=== PATIENT | female | born 1955 | race Caucasian/White ===

== ENCOUNTER 2021-07-22 13:02 | Emergency (ER) | payer MEDICAID ==
[~2021-07-22] VITALS: Ht 167.6 cm; Wt 64.5 kg
[2021-07-22 13:48] LABS: BASOPHILS # (AUTO) 0.1 X10'3 (0-0.2); EOSINOPHILS # (AUTO) 0.1 X10'3 (0-0.9); EOSINOPHILS % (AUTO) 1.9 % (0-6); LYMPHOCYTES # (AUTO) 1.1 X10'3 (1.1-4.8); PLATELET COUNT 312 X10'3 (140-440)
[2021-07-22 13:50] LABS: BASOPHILS % (AUTO) 0.8 % (0-1); HEMATOCRIT 44.1 % (35.0-45.0); LYMPHOCYTES % (AUTO) 18.3 % (21-51); MEAN CORPUSCULAR HEMOGLOBIN 31.4 PG (27.0-31.0); MEAN CORPUSCULAR VOLUME 92.4 FL (78-98); MEAN PLATELET VOLUME 7.1 FL (7.4-10.4); MONOCYTES # (AUTO) 0.5 X10'3 (0-0.9); MONOCYTES % (AUTO) 8.6 % (2-12); NEUTROPHILS # (AUTO) 4.2 X10'3 (1.8-7.7); NEUTROPHILS % (AUTO) 70.4 % (42-75); RED BLOOD COUNT 4.77 X10'6 (4.20-5.60)
[2021-07-22] MEDS ORDERED: ipratropium/albuterol 3ml nebule NEB ONE (13:50)
[2021-07-22 13:56] LABS: ALANINE AMINOTRANSFERASE 21 U/L (12-78); ALBUMIN 3.4 G/DL (3.4-5.0); ALBUMIN/GLOBULIN RATIO 0.8 (1.1-1.5); ALKALINE PHOSPHATASE 80 IU/L (46-116); ANION GAP 14 (8-16); ASPARTATE AMINO TRANSFERASE 32 U/L (10-37); BILIRUBIN,TOTAL 0.8 MG/DL (0.1-1.0); BLOOD UREA NITROGEN 7 MG/DL (7-18); CALCIUM 9.4 MG/DL (8.5-10.1); CHLORIDE 94 MMOL/L (99-107); CREATININE 0.88 MG/DL (0.40-0.90); GLUCOSE 107 MG/DL (70-104); POTASSIUM 4.1 MMOL/L (3.5-5.1); SODIUM 131 MMOL/L (135-145); TOTAL CARBON DIOXIDE 23.3 MMOL/L (24-32); TOTAL PROTEIN 7.8 G/DL (6.4-8.2); eGFR 64 ML/MIN
[2021-07-22] MEDS ORDERED: ALBU8.5H17 IH (15:30)
[2021-07-22] MEDS ORDERED: PRED20TA PO (15:30)
[2021-07-22 16:27] VITALS: BP 130/79
== END 2021-07-22 16:28 | disposition home or self-care (01) ==
LOC: ER 13:02
DX: J44.1 Chronic obstructive pulmonary disease with (acute) exacerbation (principal); Z20.822 Contact with and (suspected) exposure to COVID-19; R06.02 Shortness of breath; M79.89 Other specified soft tissue disorders; Z79.899 Other long term (current) drug therapy
CPT/HCPCS: 36415; 71045; 80053; 83880; 84484; 85025; 87502; 87503; 87635; 93005; 94640; 99285; C9803; 94760

== ENCOUNTER 2022-01-07 14:56 | Inpatient (IN) | payer MEDICARE, MEDICAID ==
[~2022-01-07] VITALS: Ht 167.6 cm; Wt 59.0 kg
[~2022-01-07 14:56] MED LIST: ALBU8.5H17 IH
[2022-01-07] MEDS ORDERED: OMEP20CA16 PO (15:45)
[2022-01-07] MEDS ORDERED: BUDE10.22 IH (15:45)
[2022-01-07] MEDS ORDERED: DILT-35 PO (15:45)
[2022-01-07] MEDS ORDERED: ALBU18HF2 INH (15:45)
[2022-01-07] MEDS ORDERED: ATEN50TA8 PO (15:45)
[2022-01-07 15:59] LABS: BASOPHILS % (AUTO) 0.1 % (0-1); EOSINOPHILS % (AUTO) 0 % (0-6); HEMATOCRIT 33.6 % (35.0-45.0); HEMOGLOBIN 11.3 g/dl (12.0-16.0); LYMPHOCYTES % (AUTO) 7.7 % (21-51); MEAN CORPUSCULAR HEMOGLOBIN 30.6 PG (27.0-31.0); MEAN CORPUSCULAR HGB CONC 33.7 g/dL (33.0-36.5); MEAN CORPUSCULAR VOLUME 90.8 FL (78-98); MONOCYTES # (AUTO) 0.8 X10'3 (0-0.9); MONOCYTES % (AUTO) 5.9 % (2-12); NEUTROPHILS % (AUTO) 86.3 % (42-75); PLATELET COUNT 270 X10'3 (140-440); RED CELL DISTRIBUTION WIDTH 13.7 % (11.5-14.5); WHITE BLOOD COUNT 12.7 X10'3 (4.5-11.0)
[2022-01-07 16:03] LABS: ALANINE AMINOTRANSFERASE 23 U/L (12-78); ALBUMIN 1.6 G/DL (3.4-5.0); ALBUMIN/GLOBULIN RATIO 0.3 (1.1-1.5); ALKALINE PHOSPHATASE 97 IU/L (46-116); ANION GAP 10 (8-16); ASPARTATE AMINO TRANSFERASE 68 U/L (10-37); BLOOD UREA NITROGEN 13 MG/DL (7-18); BUN/CREATININE RATIO 21.3 (6.6-38.0); CALCIUM 8.8 MG/DL (8.5-10.1); CHLORIDE 89 MMOL/L (99-107); CREATININE 0.61 MG/DL (0.40-0.90); GLUCOSE 106 MG/DL (70-104); SODIUM 127 MMOL/L (135-145); TOTAL CARBON DIOXIDE 28.2 MMOL/L (24-32); TOTAL PROTEIN 6.9 G/DL (6.4-8.2); eGFR > 90 ML/MIN
[2022-01-07 16:06] LABS: POTASSIUM 2.7 MMOL/L (3.5-5.1)
[2022-01-07] MEDS ORDERED: CefTRIAXone/D5W-Rocephin 1gm 50 ML IV ONE (16:40)
[2022-01-07] MEDS ORDERED: potassium Cl 10 mEq/100mL bag IV ONE (16:40)
[2022-01-07] MEDS ORDERED: azithromycin 250mg tablet PO ONE (16:40)
[2022-01-07] MEDS ORDERED: potassium Cl 20 mEq SR tablet PO ONE (16:42)
[2022-01-07 17:20] LABS: MAGNESIUM 1.7 MG/DL (1.5-2.4)
--- NOTE | 2022-01-07 18:12 | NUR ---
PT GAVE PERMISSION FOR SON KANDI TO BE PROVIDED UPDATES. PT IS LIVING HERE ALONE, KANDI IS IN [place]. KANDI WILL NEED ASSISTANCE COORDINATING CARE/GETTING PT HOME ONCE MORE. KANDI CAN BE CONTACTED AT [phone].
[2022-01-07] MEDS ORDERED: ringers solution, lactated 1000ml IV soln IV ONE (18:30)
--- NOTE | 2022-01-07 18:32 | NUR ---
Helped patient up to bedside commode w/o problem.
[2022-01-07 18:49] LABS: POTASSIUM 3.1 MMOL/L (3.5-5.1)
[2022-01-07] MEDS ORDERED: iohexol 300mg/ml 100ml inj. ONE (19:43)
[2022-01-07] MEDS: normal saline 1000ml 1,000 ML IV SCH (19:45)
[2022-01-07] MEDS ORDERED: POTASSIUM BICARB 20meq eff tab 20 MEQ TABLET.EFF PO PRN ×2 (19:45)
[2022-01-07] MEDS ORDERED: magnesium 4gm in 100ml NS 100 ML IV PRN (19:45)
[2022-01-07] MEDS ORDERED: acetaminophen 325mg tablet PO PRN (19:45)
[2022-01-07] MEDS ORDERED: magnesium Cl slow-release 64mg tablet PO PRN (19:45)
[2022-01-07] MEDS ORDERED: morphine 2 MG/ML inj. syringe IV PRN ×2 (19:45)
[2022-01-07] MEDS ORDERED: magnesium 2GM in 50ml NS 50 ML IV PRN (19:45)
[2022-01-07] MEDS ORDERED: ondansetron/PF 4mg/2ml inj IV PRN (19:45)
[2022-01-07] MEDS ORDERED: mag hydrox/Alum hydrox/simeth 30ml oral suspension PO PRN (19:45)
[2022-01-07] MEDS ORDERED: magnesium hydroxide 30ml (MOM) UD suspension PO PRN (19:45)
--- NOTE | 2022-01-07 19:45 | NUR ---
Patient to CT
--- NOTE | 2022-01-07 19:45 | NUR ---
Patient to CT
[2022-01-07] MEDS: docusate sod 100mg capsule PO SCH (20:00)
[2022-01-07] MEDS ORDERED: albuterol 2.5 MG/3 ML nebule NEB PRN (20:00)
[2022-01-07] MEDS: K and/or MAG REPLACEMENT MC SCH (20:00)
[2022-01-07] MEDS: budesonide 0.5mg/2ml UD nebule IH SCH (20:00)
[2022-01-07] MEDS ORDERED: LORazepam 2 mg/ml vial IV PRN (20:45)
[2022-01-07] MEDS: heparin, porcine 5000 units/ml vial SQ SCH (20:58)
--- NOTE | 2022-01-07 22:10 | NUR ---
PT MOVED FROM ER GURNEY TO [facility]PATIENT HOSPITAL BED. PT STATES THIS BED FEELS MUCH BETTER.
--- NOTE | 2022-01-07 23:32 | NUR ---
Up to bedside commode, diarrhea and urine.
[2022-01-08] MEDS: normal saline 1000ml 1,000 ML IV SCH ×4 (04:46→23:58)
[2022-01-08 06:56] LABS: BASOPHILS % (AUTO) 0.2 % (0-1); EOSINOPHILS % (AUTO) 0 % (0-6); HEMATOCRIT 30.5 % (35.0-45.0); HEMOGLOBIN 10.2 g/dl (12.0-16.0); LYMPHOCYTES # (AUTO) 0.9 X10'3 (1.1-4.8); LYMPHOCYTES % (AUTO) 7.7 % (21-51); MEAN CORPUSCULAR HEMOGLOBIN 29.8 PG (27.0-31.0); MEAN CORPUSCULAR HGB CONC 33.3 g/dL (33.0-36.5); MEAN CORPUSCULAR VOLUME 89.5 FL (78-98); MONOCYTES # (AUTO) 0.7 X10'3 (0-0.9); MONOCYTES % (AUTO) 6.1 % (2-12); NEUTROPHILS # (AUTO) 10.3 X10'3 (1.8-7.7); PLATELET COUNT 236 X10'3 (140-440); RED BLOOD COUNT 3.41 X10'6 (4.20-5.60)
[2022-01-08 07:16] LABS: CLARITY,URINE CLEAR (Clear); COLOR,URINE ORANGE (Yellow); GLUCOSE, URINE NEGATIVE (Neg); KETONES,URINE >=80 mg/dl (Neg); LEUKOCYTE ESTERASE ,URINE NEGATIVE (Neg); OCCULT BLOOD,URINE NEGATIVE (Neg); PH,URINE 6.5 (4.8-8.0); PROTEIN,URINE 30 mg/dl (Neg)
[2022-01-08 07:24] LABS: ALANINE AMINOTRANSFERASE 20 U/L (12-78); ALBUMIN 1.3 G/DL (3.4-5.0); ALBUMIN/GLOBULIN RATIO 0.3 (1.1-1.5); ALKALINE PHOSPHATASE 82 IU/L (46-116); ANION GAP 8 (8-16); ASPARTATE AMINO TRANSFERASE 66 U/L (10-37); BILIRUBIN,TOTAL 0.6 MG/DL (0.1-1.0); BLOOD UREA NITROGEN 13 MG/DL (7-18); BUN/CREATININE RATIO 22.8 (6.6-38.0); CALCIUM 7.9 MG/DL (8.5-10.1); CHLORIDE 97 MMOL/L (99-107); CREATININE 0.57 MG/DL (0.40-0.90); GLUCOSE 96 MG/DL (70-104); MAGNESIUM 1.7 MG/DL (1.5-2.4); POTASSIUM 3.6 MMOL/L (3.5-5.1); SODIUM 133 MMOL/L (135-145); TOTAL CARBON DIOXIDE 28.1 MMOL/L (24-32); eGFR > 90 ML/MIN
[2022-01-08 07:30] LABS: UA COLLECTION TYPE OTHER
[2022-01-08] MEDS: K and/or MAG REPLACEMENT MC SCH ×2 (07:48→19:21)
[2022-01-08] MEDS: atenolol 50mg tablet PO SCH (08:00)
[2022-01-08] MEDS: budesonide 0.5mg/2ml UD nebule IH SCH ×2 (08:00→19:55)
[2022-01-08 08:03] LABS: NITRITES, URINE NEGATIVE (Neg)
[2022-01-08 08:04] LABS: BACTERIA,URINE FEW /HPF (Neg); MUCUS STRANDS NONE SEEN /LPF (Neg); RBC,URINE NONE SEEN /HPF (0-2); SQUAMOUS EPITHELIAL CELL,UR MODERATE /LPF (FEW); WBC,URINE 0-4 /HPF (0-4)
[2022-01-08] MEDS: pantoprazole 40mg Tablet.DR PO SCH (08:17)
[2022-01-08] MEDS: docusate sod 100mg capsule PO SCH ×2 (08:17→19:39)
[2022-01-08] MEDS: azithromycin 250mg tablet PO SCH (08:17)
[2022-01-08] MEDS: heparin, porcine 5000 units/ml vial SQ SCH ×2 (08:18→19:39)
[2022-01-08] MEDS: CefTRIAXone/D5W-Rocephin 1gm 50 ML IV SCH (08:18)
--- NOTE | 2022-01-08 08:20 | NUR ---
breakfast meal tray given to pt
[2022-01-08 13:43] VITALS: BP 109/63
[2022-01-08 15:00] VITALS: BP 113/63
[2022-01-08 18:00] VITALS: BP 90/50
--- NOTE | 2022-01-08 18:18 | NUR ---
Problems reprioritized. Patient report given, questions answered & plan of care reviewed with Katrina RN. Patient sleeping in bed in no acute distress.
--- NOTE | 2022-01-08 18:30 | NUR ---
Patient in room PCU 3025. I have received report from NISHA VALENTINO and had the opportunity to ask questions and assume patient care.
[2022-01-08 22:00] VITALS: BP 103/62
[2022-01-09] VITALS (7 sets, daily range): BP systolic 88–123; BP diastolic 50–76
[2022-01-09] MEDS: normal saline 1000ml 1,000 ML IV SCH ×3 (01:36→23:11)
--- NOTE | 2022-01-09 06:30 | NUR ---
Problems reprioritized. Patient report given, questions answered & plan of care reviewed with RAMSEY VALENTINO.
[2022-01-09 06:43] LABS: BASOPHILS % (AUTO) 0.1 % (0-1); EOSINOPHILS % (AUTO) 0 % (0-6); HEMATOCRIT 28.6 % (35.0-45.0); HEMOGLOBIN 9.7 g/dl (12.0-16.0); LYMPHOCYTES % (AUTO) 8.8 % (21-51); MEAN CORPUSCULAR HEMOGLOBIN 30.6 PG (27.0-31.0); MEAN CORPUSCULAR HGB CONC 33.9 g/dL (33.0-36.5); MEAN CORPUSCULAR VOLUME 90.4 FL (78-98); MEAN PLATELET VOLUME 8.2 FL (7.4-10.4); MONOCYTES # (AUTO) 0.5 X10'3 (0-0.9); MONOCYTES % (AUTO) 4.8 % (2-12); NEUTROPHILS # (AUTO) 9.6 X10'3 (1.8-7.7); NEUTROPHILS % (AUTO) 86.3 % (42-75); PLATELET COUNT 234 X10'3 (140-440); RED BLOOD COUNT 3.16 X10'6 (4.20-5.60); RED CELL DISTRIBUTION WIDTH 13.8 % (11.5-14.5); WHITE BLOOD COUNT 11.2 X10'3 (4.5-11.0)
[2022-01-09 06:54] LABS: ALANINE AMINOTRANSFERASE 17 U/L (12-78); ALBUMIN 1.2 G/DL (3.4-5.0); ALBUMIN/GLOBULIN RATIO 0.3 (1.1-1.5); ALKALINE PHOSPHATASE 84 IU/L (46-116); ANION GAP 9 (8-16); ASPARTATE AMINO TRANSFERASE 58 U/L (10-37); BILIRUBIN,TOTAL 0.6 MG/DL (0.1-1.0); BLOOD UREA NITROGEN 9 MG/DL (7-18); BUN/CREATININE RATIO 16.7 (6.6-38.0); CALCIUM 7.7 MG/DL (8.5-10.1); CHLORIDE 98 MMOL/L (99-107); CREATININE 0.54 MG/DL (0.40-0.90); GLUCOSE 86 MG/DL (70-104); MAGNESIUM 1.5 MG/DL (1.5-2.4); SODIUM 133 MMOL/L (135-145); TOTAL CARBON DIOXIDE 26.1 MMOL/L (24-32); TOTAL PROTEIN 5.5 G/DL (6.4-8.2); eGFR > 90 ML/MIN
[2022-01-09] MEDS: budesonide 0.5mg/2ml UD nebule IH SCH ×2 (08:00→20:00)
[2022-01-09] MEDS: K and/or MAG REPLACEMENT MC SCH ×2 (08:00→19:14)
[2022-01-09] MEDS: azithromycin 250mg tablet PO SCH (08:52)
[2022-01-09] MEDS: docusate sod 100mg capsule PO SCH ×3 (08:52→19:14)
[2022-01-09] MEDS: atenolol 50mg tablet PO SCH (08:52)
[2022-01-09] MEDS: pantoprazole 40mg Tablet.DR PO SCH (08:52)
[2022-01-09] MEDS: CefTRIAXone/D5W-Rocephin 1gm 50 ML IV SCH (08:52)
[2022-01-09] MEDS: heparin, porcine 5000 units/ml vial SQ SCH ×2 (08:53→19:12)
--- NOTE | 2022-01-09 10:48 | NUR ---
Malnutrition consult: Pt reports to me an approximate 25lb wt loss since the start of this year from her wts at the doctor's office; saying she most recently weighed about 120lb. She has had decreased appetite, especially since the loss of her partner recently. Pt observed w/ moderate muscle/fat wasting to facial and BUE regions. Pt refused dinner last night and only had coffee this morning. Given moderate wt loss of ~16% in 9 months and muscle/fat wasting pt meets minimum criteria for malnutrition. Pt is agreeable to try Ensure Enlive TID. Will continue to monitor. Recs; 1. Continue Regular diet as tolerated 2. Ensure Enlive TID; pending MD verification 3. Bowel care per rx 4. Scaled wts Addendum: 01/09/22 at [address] Amended: Links added.
[2022-01-09] MEDS: lactose-reduced food (Ensure Enlive) - 237ml bottle PO SCH ×2 (13:00→18:00)
[2022-01-09] MEDS: potassium CL 10mEq/100ml bag 100 ML IV PRN ×6 (14:18→23:07)
[2022-01-09] MEDS ORDERED: LORazepam 2 mg/ml vial IV PRN (20:45)
[2022-01-09] MEDS ORDERED: LORazepam 1 MG tablet PO PRN (20:45)
[2022-01-10] VITALS (20 sets, daily range): BP systolic 89–131; BP diastolic 42–82
[2022-01-10] MEDS: normal saline 1000ml 1,000 ML IV SCH ×4 (02:38→20:44)
[2022-01-10 06:09] LABS: BASOPHILS % (AUTO) 0.2 % (0-1); EOSINOPHILS % (AUTO) 0.1 % (0-6); HEMATOCRIT 28.8 % (35.0-45.0); HEMOGLOBIN 9.9 g/dl (12.0-16.0); LYMPHOCYTES # (AUTO) 1.1 X10'3 (1.1-4.8); MEAN CORPUSCULAR HEMOGLOBIN 31.3 PG (27.0-31.0); MEAN CORPUSCULAR HGB CONC 34.2 g/dL (33.0-36.5); MEAN CORPUSCULAR VOLUME 91.5 FL (78-98); MEAN PLATELET VOLUME 8.5 FL (7.4-10.4); MONOCYTES # (AUTO) 0.5 X10'3 (0-0.9); MONOCYTES % (AUTO) 4.5 % (2-12); NEUTROPHILS # (AUTO) 8.6 X10'3 (1.8-7.7); NEUTROPHILS % (AUTO) 84.2 % (42-75); PLATELET COUNT 256 X10'3 (140-440); RED BLOOD COUNT 3.15 X10'6 (4.20-5.60); WHITE BLOOD COUNT 10.2 X10'3 (4.5-11.0)
[2022-01-10 06:30] LABS: ALANINE AMINOTRANSFERASE 18 U/L (12-78); ALBUMIN 1.3 G/DL (3.4-5.0); ALBUMIN/GLOBULIN RATIO 0.3 (1.1-1.5); ALKALINE PHOSPHATASE 84 IU/L (46-116); ANION GAP 11 (8-16); ASPARTATE AMINO TRANSFERASE 62 U/L (10-37); BILIRUBIN,TOTAL 0.8 MG/DL (0.1-1.0); BLOOD UREA NITROGEN 5 MG/DL (7-18); BUN/CREATININE RATIO 9.1 (6.6-38.0); CALCIUM 7.9 MG/DL (8.5-10.1); CHLORIDE 98 MMOL/L (99-107); CREATININE 0.55 MG/DL (0.40-0.90); GLUCOSE 81 MG/DL (70-104); MAGNESIUM 1.4 MG/DL (1.5-2.4); POTASSIUM 3.4 MMOL/L (3.5-5.1); SODIUM 131 MMOL/L (135-145); TOTAL CARBON DIOXIDE 21.6 MMOL/L (24-32); TOTAL PROTEIN 5.8 G/DL (6.4-8.2); eGFR > 90 ML/MIN
[2022-01-10] MEDS: heparin, porcine 5000 units/ml vial SQ SCH ×2 (08:00→20:00)
[2022-01-10] MEDS: lactose-reduced food (Ensure Enlive) - 237ml bottle PO SCH ×3 (08:00→18:00)
[2022-01-10] MEDS: budesonide 0.5mg/2ml UD nebule IH SCH ×2 (08:10→19:07)
[2022-01-10] MEDS: azithromycin 250mg tablet PO SCH (08:32)
[2022-01-10] MEDS: pantoprazole 40mg Tablet.DR PO SCH (08:32)
[2022-01-10] MEDS: atenolol 50mg tablet PO SCH (08:32)
[2022-01-10] MEDS: docusate sod 100mg capsule PO SCH ×2 (08:32→20:00)
[2022-01-10] MEDS: CefTRIAXone/D5W-Rocephin 1gm 50 ML IV SCH (08:35)
[2022-01-10] MEDS: K and/or MAG REPLACEMENT MC SCH ×2 (08:44→20:00)
[2022-01-10] MEDS: potassium CL 10mEq/100ml bag 100 ML IV PRN ×4 (09:56→16:34)
[2022-01-10] MEDS ORDERED: epiNEPHrine 1 MG/ML 1 ml ampule **BRONCH ONLY ONE (11:40)
[2022-01-10] MEDS ORDERED: LIDOCAINE 4% (40MG/ML) topical solution 50ml **BRONCH ONLY ONE (11:41)
[2022-01-10] MEDS ORDERED: lidocaine 2% viscous 15 ML cup ***bronch room only MM ONE ×2 (11:41→11:58)
[2022-01-10] MEDS ORDERED: phenylephrine 1% Nasal spray (extra-strength) 15 ML bottle **bronch room NS ONE (11:41)
[2022-01-10] MEDS ORDERED: MIDAZolam 1mg/ml 10ml vial IM ONE (11:50)
[2022-01-10] MEDS ORDERED: fentaNYL/PF 50MCG/1 ML 2ML syringe IV ONE (11:50)
[2022-01-10] MEDS: ipratropium/albuterol 3ml nebule NEB SCH ×3 (15:00→23:00)
--- NOTE | 2022-01-10 18:25 | NUR ---
Patient in room PCU 3025. I have received report from Marcelina RN and had the opportunity to ask questions and assume patient care.
--- NOTE | 2022-01-10 18:36 | NUR ---
Problems reprioritized. Patient report given, questions answered & plan of care reviewed with CHICHO Ramirez.
--- NOTE | 2022-01-11 02:00 | NUR ---
Pt advised she did not want to be woken up for 0200 vitals Addendum: 01/11/22 at 0452 by Ashley Mcadams LVN Amended: Links added.
[2022-01-11] MEDS: ipratropium/albuterol 3ml nebule NEB SCH ×4 (02:35→14:47)
[2022-01-11] MEDS: normal saline 1000ml 1,000 ML IV SCH ×2 (05:29→11:58)
[2022-01-11 06:00] VITALS: BP 110/70
--- NOTE | 2022-01-11 06:02 | NUR ---
REVIEWED POLICE JUSTICE ASSESSMENT AND IN AGREEMENT,
--- NOTE | 2022-01-11 06:11 | NUR ---
Problems reprioritized. Patient report given, questions answered & plan of care reviewed with Marcelina RN.
[2022-01-11 06:35] LABS: BASOPHILS % (AUTO) 0.3 % (0-1); EOSINOPHILS % (AUTO) 0.2 % (0-6); HEMATOCRIT 29.6 % (35.0-45.0); HEMOGLOBIN 10.2 g/dl (12.0-16.0); LYMPHOCYTES # (AUTO) 0.9 X10'3 (1.1-4.8); LYMPHOCYTES % (AUTO) 9.4 % (21-51); MEAN CORPUSCULAR HEMOGLOBIN 31.2 PG (27.0-31.0); MEAN CORPUSCULAR HGB CONC 34.3 g/dL (33.0-36.5); MONOCYTES # (AUTO) 0.4 X10'3 (0-0.9); MONOCYTES % (AUTO) 3.9 % (2-12); NEUTROPHILS # (AUTO) 8.3 X10'3 (1.8-7.7); NEUTROPHILS % (AUTO) 86.2 % (42-75); PLATELET COUNT 254 X10'3 (140-440); RED BLOOD COUNT 3.26 X10'6 (4.20-5.60); RED CELL DISTRIBUTION WIDTH 13.9 % (11.5-14.5); WHITE BLOOD COUNT 9.6 X10'3 (4.5-11.0)
[2022-01-11 07:01] LABS: ALANINE AMINOTRANSFERASE 14 U/L (12-78); ALBUMIN 1.2 G/DL (3.4-5.0); ALBUMIN/GLOBULIN RATIO 0.3 (1.1-1.5); ALKALINE PHOSPHATASE 82 IU/L (46-116); ANION GAP 14 (8-16); ASPARTATE AMINO TRANSFERASE 45 U/L (10-37); BILIRUBIN,TOTAL 0.6 MG/DL (0.1-1.0); BLOOD UREA NITROGEN 4 MG/DL (7-18); BUN/CREATININE RATIO 8.2 (6.6-38.0); CALCIUM 7.8 MG/DL (8.5-10.1); CHLORIDE 97 MMOL/L (99-107); CREATININE 0.49 MG/DL (0.40-0.90); GLUCOSE 88 MG/DL (70-104); MAGNESIUM 1.9 MG/DL (1.5-2.4); POTASSIUM 3.3 MMOL/L (3.5-5.1); SODIUM 131 MMOL/L (135-145); TOTAL CARBON DIOXIDE 19.9 MMOL/L (24-32); TOTAL PROTEIN 5.7 G/DL (6.4-8.2); eGFR > 90 ML/MIN
[2022-01-11] MEDS: budesonide 0.5mg/2ml UD nebule IH SCH (07:28)
[2022-01-11] MEDS: K and/or MAG REPLACEMENT MC SCH (08:00)
[2022-01-11] MEDS: heparin, porcine 5000 units/ml vial SQ SCH (08:25)
[2022-01-11] MEDS: docusate sod 100mg capsule PO SCH (08:26)
[2022-01-11] MEDS: atenolol 50mg tablet PO SCH (08:26)
[2022-01-11] MEDS: pantoprazole 40mg Tablet.DR PO SCH (08:26)
[2022-01-11] MEDS: CefTRIAXone/D5W-Rocephin 1gm 50 ML IV SCH (08:26)
[2022-01-11] MEDS: azithromycin 250mg tablet PO SCH (08:26)
[2022-01-11] MEDS: lactose-reduced food (Ensure Enlive) - 237ml bottle PO SCH ×2 (08:39→13:07)
[2022-01-11 11:00] VITALS: BP 122/72
--- NOTE | 2022-01-11 13:51 | NUR ---
Reassessment: Pt continues on regular diet and eating poorly, documented with 0% PO intake of all meals with the exception of 25% PO intake at breakfast 01/09. Pt receiving an Ensure Enlive TID though not drinking ONS. Pt seen at bedside states she has a low appetite and no desire to eat. Pt declines food preferences overall but did agree to a chocolate shake with meals, d/w dietary. Pt with an unopened Ensure at bedside, willing to try it with ice. Pt requested to not receive ONS however RD discussed the importance of nutrition and ultimately pt willing to try ONS though requested to receive chocolate only, d/w dietary. RD also discussed the possibility of a feeding tube if pt continues to not eat of which pt states she will think about. RD encouraged PO intake and provided pt with RD contact information and encouraged pt to reach out for any food preferences. LBM 01/11. Will continue to follow closely. Recommendations: 1. Continue regular diet 2. Chocolate Ensure Enlive TID; Chocolate shake TID 3. Consider NGT placement for EN if pt agreeable and within POC 4. Bowel care per rx 5. Weekly scaled weights Addendum: 01/11/22 at [address] Amended: Links added.
[2022-01-11 15:00] VITALS: BP 120/75
--- NOTE | 2022-01-11 15:16 | NUR ---
Attempted to call POA panchito Sanchez with discharge update, no answer, left VM with call back number.
--- NOTE | 2022-01-11 15:26 | NUR ---
Called [facility], spoke to CHICHO Malik- provided full report, answered all questions, provided call back number. Requesting to keep PIV as pt will continue IV abx at [facility].
--- NOTE | 2022-01-11 16:12 | NUR ---
Josh Sanchez returned phone call, provided update, ok with transfer today, provided phone number for [facility].
--- NOTE | 2022-01-11 17:28 | NUR ---
Pt picked up via [facility] and transferred to [facility]. Pt taken with all belongings, report called earlier to CHICHO Malik. Provided son Daniel with update. Pt transferred with PIV per [email or web address] request for IV abx.
[2022-01-11] MEDS ORDERED: LORazepam 1 MG tablet PO PRN (20:45)
[2022-01-12] MEDS ORDERED: thiamine 100mg tablet PO SCH (08:00)
== END 2022-01-11 17:28 | DRG 193 ==
LOC: ER 14:56 → ED HOLD 19:55 → PCU 3S 01-08 13:30
PROVIDERS: ADMIT Internal Medicine; ATTEND Family Medicine
PROC: BW241ZZ Computerized Tomography (CT Scan) of Chest and Abdomen using Low Osmolar Contrast (ICD-10-PCS; 2022-01-07)
PROC: 0BB38ZX Excision of Right Main Bronchus, Via Natural or Artificial Opening Endoscopic, Diagnostic (ICD-10-PCS; principal; 2022-01-10)
DX: J18.9 Pneumonia, unspecified organism (principal); E43 Unspecified severe protein-calorie malnutrition; J96.01 Acute respiratory failure with hypoxia; J44.0 Chronic obstructive pulmonary disease with (acute) lower respiratory infection; J98.19 Other pulmonary collapse; E87.1 Hypo-osmolality and hyponatremia; J98.11 Atelectasis; R65.10 Systemic inflammatory response syndrome (SIRS) of non-infectious origin without acute organ dysfunction; R62.7 Adult failure to thrive; I10 Essential (primary) hypertension; Z20.822 Contact with and (suspected) exposure to COVID-19; E87.6 Hypokalemia; M54.6 Pain in thoracic spine; Z85.118 Personal history of other malignant neoplasm of bronchus and lung; Z87.891 Personal history of nicotine dependence; Z98.82 Breast implant status; Z88.2 Allergy status to sulfonamides; Z79.899 Other long term (current) drug therapy; Z68.21 Body mass index [BMI] 21.0-21.9, adult
CPT/HCPCS: 31625; 36415; 71045; 71260; 80053; 81001; 83735; 83880; 84132; 84145; 84484; 85025; 87081; 87811; 93005; 94640; 94760; 97116; 97162; 97530; 99285; A6258; G0378; J0171; J0696; J1644; J2405; J3475; J3480; J3490; J7030; J7040; J7120; Q9967